=== PATIENT | male | born 1935 | race Caucasian/White ===

== ENCOUNTER → 2017-10-26 | Day surgery (SDC) | payer OTHER, MEDICARE ==
[~2017-10-26] MED LIST: ASPIRIN CHILDRE81 MG PO; ASPIRIN EC81 M1 PO; ATORVASTATIN CA40 M1 PO; ATORVASTATIN CA40 MG PO; CARVEDILOL12.5 M1 PO; CEPHALEXIN500 MG PO; CLINDAMYCIN HY300 MG PO; ENALAPRIL MALEA10 MG PO; FLOMAX0.4 M1 PO; HYDROCODONE/ACE1 TA1 PO; LEVOTHYROXIN0.125 M1 PO; LEVOTHYROXINE100 MC1 PO; LISINOPRIL20 M1 PO; MECLIZINE25 M1 PO; OMEPRAZOLE20 M2 PO; PERCOCET 5-3251 EACH PO; TAMSULOSIN HYD0.4 MG PO; ZETIA10 M1 PO
--- NOTE | 2017-10-29 09:01 | Operative Report ---
Operative/Inv Procedure Report Surgery Date: 10/26/17 Name of Procedure: TEPP preperitoneal laparoscopic mesh repair of right inguinal hernia Pre-Operative Diagnosis: Right inguinal hernia Post-Operative Diagnosis: Same, direct Estimated Blood Loss: scant Surgeon/Grades 9 12 Tutor: Kenji MCFADDEN,Chris MCDERMOTT Anesthesia: general endotracheal tube Operative/Procedure Note Note: Patient was positioned supine on the table. After successful induction of general anesthesia the inguinal and surrounding areas were clipped prepped and draped in the usual sterile fashion. After injection of local anesthetic at the bottom of the umbilicus off the midline, a 1 1/2 cm curved incision was made with a 15 blade, then deepened through David's fascia, sweeping off the rectus sheath. A horizontal 1-1/2 cm incision was made between the fibers, elevating these edges with 0 Vicryl stay sutures. Then retracting the muscle laterally, clearing off the posterior rectus sheath, this space is developed down the midline to the pubis sequentially, with an S retractor, a peanut dissector, then the balloon-camera device, inflating it 30-40 pumps while watching how it opens up the space, keeping the epigastrics up. The balloon is then replaced with a 10 mm Knowles trocar, inserted, shortened, and secured with the stay sutures, gas turned on to 12 not 15 mm. Then two 5 mm trochars are inserted in the midline just below the camera, spaced by approximately 3 cm. Using mostly blunt dissection with peanuts to define the anatomy, first Michael's ligament is swept off medially, checking the medial spaces, direct and femoral. Then we returned to the area medial to the fat pad where the hernia sac was adherent, coursing up just medial to the vein, up through the defect. The hernia sac and contents was reduced and that lip of peritoneum was swept down and proximally to the level of the bladder and off the vas a little laterally. The cord structures form a triangle with the vas approaching medially and the main vessels approaching laterally, with the apex at the deep ring, then from the underlying iliac fat. A Parietex sided mesh with the suture, is marked and stuffed down the camera trocar, then unfurled in a systematic fashion, first with the smaller leaflet passing behind the cord structures, until the flap covers the epigastrics, covering the deep ring, then the larger leaflet is released from the suture, double-covering the smaller one, but also extends laterally out to the iliac crest, medially over Michael's ligament, and superiorly towards the camera. There is a third part of the mesh, that covers the iliac fat pad like a skirt. The mesh was adjusted back and forth so that the keyhole is centered around the cord, lays flat and the edges are not curling. A trial run of letting the gas escape a little bit to see how the mesh would lay as the peritoneum comes back down is done, then when we're satisfied, we let rest of the gas escape, pulling out the instruments and trochars. The fascia is closed with a [id number] 0 Vicryl suture, tying the stay sutures on top. Then we closed the 3 skin incisions with interrupted 4-0 Monocryl, 3 for the umbilical, one each for the smaller ones, followed by Mastisol, Steri-Strips and Band-Aids. Overall estimated blood loss was minimal, lap and sponge counts were correct, wound expectancy was clean, IV fluids crystalloid, complications none, patient tolerated the procedure well, did not significantly mcgowan during extubation and was returned to the recovery room in satisfactory condition.
== END ==
LOC: STS 10-23 07:00
DX: K40.90 Unilateral inguinal hernia, without obstruction or gangrene, not specified as recurrent (principal); I10 Essential (primary) hypertension; I25.10 Atherosclerotic heart disease of native coronary artery without angina pectoris; Z95.1 Presence of aortocoronary bypass graft; E03.9 Hypothyroidism, unspecified
CPT/HCPCS: C1781; J0690; J2250; J3490